=== PATIENT | female | born 1945 | race Caucasian/White ===

== ENCOUNTER 2017-12-09 06:25 | Inpatient (IN) ==
[2017-12-02 13:39] LABS: Appearance,Urine HAZY; Bilirubin,Urine NEG (NEG); Color,Urine YELLOW; Glucose,Urine (UA) NEGATIVE (NEG); Leukocyte Esterase,Urine NEG /uL (NEG); Protein,Urine NEG (NEG); Specific Gravity,Urine 1.028 (1.000-1.035); Urine Blood NEG mg/dL (<0.03)
[2017-12-02 13:44] LABS: Basophils # (Auto) 0 K/mcL (0.0-0.3); Basophils % (Auto) 0.8 % (0.0-2.0); Eosinophils # (Auto) 0.3 K/mcL (0.0-0.7); Eosinophils % (Auto) 5.4 % (0.0-7.0); Granulocytes % (Auto) 56.1 % (38.0-78.0); Lymphocytes # (Auto) 1.7 K/mcL (1.5-4.8); Lymphocytes % (Auto) 28.8 % (15.5-49.0); Mean Cell Volume 90.5 fL (80.0-100.0); Mean Corpuscular HGB Conc 32.9 g/dL (31.0-36.0); Mean Corpuscular Hemoglobin 29.8 pg (26.0-34.0); Monocytes # (Auto) 0.5 K/mcL (0.1-0.9); Monocytes % (Auto) 8.9 % (1.0-12.0); Platelet Count 354 K/mcL (140-440); RBC 4.73 M/mcL (4.00-5.20); Red Cell Distribution Width 13.3 % (11.5-14.5)
[2017-12-02 14:07] LABS: Blood Urea Nitrogen 14 mg/dl (8-23)
[2017-12-09] MEDS ORDERED: 0.9 % SODIUM CHLORIDE 9 ML, KETOROLAC 30 MG, ROPIVACAINE HCL/PF 49.5 ML, EPINEPHrine 0.... IJ SCH (07:00)
[2017-12-09] MEDS ORDERED: ACETAMINOPHEN 500 MG TABLET PO SCH (07:00)
[2017-12-09] MEDS ORDERED: PREGABALIN 75 MG CAPSULE PO SCH (07:00)
[2017-12-09] MEDS ORDERED: oxyCODONE 10 MG TAB.ER.12H PO SCH (07:00)
[2017-12-09] MEDS ORDERED: CELECOXIB 200 MG CAPSULE PO SCH (07:00)
[2017-12-09] MEDS ORDERED: ceFAZolin 1 GM VIAL IV SCH (07:00)
[2017-12-09] MEDS ORDERED: ROPIVACAINE HCL/PF 20 ML VIAL IJ ONE (09:10)
[2017-12-09] MEDS ORDERED: KETAMINE 100 MG/ML ML IV ONE (09:10)
[2017-12-09] MEDS ORDERED: PHENYLEPHRINE 10 MG/ML VIAL IV ONE (09:10)
[2017-12-09] MEDS ORDERED: GLYCOPYRROLATE 0.2 MG/ML VIAL IV ONE (09:10)
[2017-12-09] MEDS ORDERED: TRANEXAMIC ACID 1,000 MG/10 ML VIAL IV ONE ×2 (09:10→10:26)
[2017-12-09] MEDS ORDERED: LIDOCAINE HCL/PF 100 MG/5 ML SYRINGE IV ONE (09:10)
[2017-12-09] MEDS ORDERED: ONDANSETRON 4 MG/2 ML VIAL IV ONE (09:10)
[2017-12-09] MEDS ORDERED: MIDAZOLAM 2 MG/2 ML VIAL IV ONE (09:10)
[2017-12-09] MEDS ORDERED: PROPOFOL 200 MG/20 ML VIAL IV ONE (09:10)
[2017-12-09] MEDS ORDERED: GENTAMICIN SULFATE 800 MG/20 ML VIAL IR ONE (09:46)
[2017-12-09] MEDS ORDERED: TEMAZEPAM 15 MG CAPSULE PO PRN (10:26)
[2017-12-09] MEDS ORDERED: BISACODYL 10 MG SUPP.RECT PR PRN (10:26)
[2017-12-09] MEDS ORDERED: HYDROmorphone 2 MG/ML VIAL IV PRN (10:26)
[2017-12-09] MEDS ORDERED: MAGNESIUM HYDROXIDE 30 ML ORAL.SUSP PO PRN (10:26)
[2017-12-09] MEDS ORDERED: FLEETS ADULT ENEMA PR PRN (10:26)
[2017-12-09] MEDS ORDERED: ACETAMINOPHEN 325 MG TABLET PO PRN (10:26)
[2017-12-09] MEDS ORDERED: BENZOCAINE/MENTHOL 1 LOZENGE PO PRN (10:26)
[2017-12-09] MEDS ORDERED: ONDANSETRON 4 MG/2 ML VIAL IV PRN ×2 (10:26→10:35)
[2017-12-09] MEDS ORDERED: POLYETHYLENE GLYCOL 3350 17 GM PACKET PO PRN (10:26)
--- NOTE | 2017-12-09 10:26 | Brief Operative Note ---
Date of procedure: 12/09/17 Pre-op diagnosis: right knee djd severe Post-op diagnosis: same Procedure: right tka with robot Grafts/Implants: Yes Anesthesia: GETA Complications: none Surgeon: Ronny Abbott Alarm Mechanic: Kingston Alvarez Estimated blood loss (cc): 20 Tourniquet Time (Minutes): 40 Specimens Removed/Pathology: none sent Condition: stable
[2017-12-09] MEDS ORDERED: MEPERIDINE 25 MG/ML SYRINGE IV PRN (10:35)
[2017-12-09] MEDS ORDERED: METHOCARBAMOL 1,000 MG/10 ML VIAL IV PRN (10:35)
[2017-12-09] MEDS ORDERED: IPRATROPIUM/ALBUTEROL 3 ML AMPUL.NEB NEB PRN (10:35)
[2017-12-09] MEDS ORDERED: PROMETHAZINE 25 MG/ML VIAL IV PRN (10:35)
[2017-12-09] MEDS ORDERED: fentaNYL 100 MCG/2 ML VIAL IV PRN (10:35)
[2017-12-09] MEDS ORDERED: LACTATED RINGERS 1,000 ML IV SCH (10:45)
--- NOTE | 2017-12-09 11:38 | Operative Note ---
DATE OF OPERATION: 12/09/2017 PREOPERATIVE DIAGNOSIS: Severe arthritis of the right knee. POSTOPERATIVE DIAGNOSIS: Severe arthritis of the right knee. PROCEDURE: Right total knee arthroplasty using the [employer] robot. SURGEON: Ronny Abbott MD OIL AND GAS PRINCIPAL: Kingston Alavrez PA-C. ANESTHESIA: General LMA anesthesia. TOURNIQUET TIME: 40 minutes. IMPLANTS: Cemented femoral with a cruciate retained design with resurfacing of the patella, and 11 mm poly, a 33 mm patellar button. DESCRIPTION OF PROCEDURE: The patient was brought to the operating room and put to sleep with general LMA anesthesia. A midline incision made. We inspected the knee through a mid vastus approach showing severe arthritis of all three compartments. With this found we then proceeded with the preplanned total knee arthroplasty. Two pins above and below the knee were placed with an array and we registered the center of hip rotation medial and lateral malleolus, 30 points on the femur, 30 points on the tibia, intra-articular pins. We then balanced the knee at 90 degrees and 15 degrees. We adjusted the implants for this ligamentous laxity and alignment and then we proceeded with the robot. The robot was brought in and cut the cuts perfectly. These bony fragments were removed on the tibia and the femur. We preserved the posterior cruciate ligament, removed the remnants of the meniscus and any spurs posteriorly were removed. Once done, we then trialed the baseplate and rotation was set with the robot of the tibial baseplate. I then trialed the 9 and then an 11 poly. The 11 was the preplanned poly and seemed to be the most appropriate, gaining full extension to 0; varus valgus was 1 degree varus. We then resurfaced the patella measuring 22.5 to 23 mm total thickness. This was then cut to 14 mm and cemented into place a 33 mm patellar button. We cemented in and placed the tibial baseplate and the femoral component after thorough irrigation and using the CarboJet which cleaned the bone and dried the bone. Good impregnation of the cement in every area. Excess cement was removed. The 11 mm poly was placed. We irrigated, kept the knee at 45 degrees until all was dry and the cement was hard. We took the knee through range of motion. Patella tracked perfectly and we looked for more debris. We then closed the mid vastus approach with #1 Stratafix. Once this was done, we then irrigated thoroughly and closed the skin with a #1 Stratafix, two sutures were closed on the medial capsule and one under the subcutaneous and then an adhesive closure. Sterile bandage was applied. The pins had been removed, both from intra-articular and on the femur. These portals were washed out and closed with 4-0 nylon. Sterile bandage was applied. The patient tolerated this well without complications. RBH:annie Job ID: [id number] Doc ID: [id number] Ronny Abbott MD
[2017-12-09] MEDS: 0.45 % SODIUM CHLORIDE 1,000 ML IV SCH ×2 (11:41→21:30)
[2017-12-09] MEDS: HYDROcodone/APAP 10/325MG TABLET PO PRN ×4 (12:10→20:41)
[2017-12-09] MEDS: KETOROLAC 15 MG/ML VIAL IV SCH ×3 (12:10→23:44)
--- NOTE | 2017-12-09 12:34 | XRay Report ---
CLINICAL INFORMATION: ITS.REASON: Post-Op Total Knee COMPARISON: Preoperative x-ray 10/09/2017 FINDINGS: Total knee prostheses is anatomically aligned. No osseous abnormality. Periarticular gas and soft tissue swelling seen as expected IMPRESSION: Negative Interpreted and Authenticated by: Erasmo Palomares 12/09/17
[2017-12-09] MEDS: 0.9 % SODIUM CHLORIDE 10 ML SYRINGE IV SCH ×2 (14:11→21:31)
[2017-12-09] MEDS: ceFAZolin 1 GM VIAL IV SCH ×2 (14:43→21:30)
[2017-12-09] MEDS: OMEPRAZOLE 20 MG CAPSULE PO SCH (16:34)
[2017-12-09] MEDS: ASPIRIN 325 MG ENTERIC COATED TABLET PO SCH (20:19)
[2017-12-09] MEDS: SENNOSIDES 1 TABLET PO SCH (20:20)
[2017-12-09] MEDS: buPROPion 150 MG TAB.XL.24H PO SCH (20:21)
[2017-12-09] MEDS: GABAPENTIN 300 MG CAPSULE PO SCH (20:21)
[2017-12-09] MEDS: SIMVASTATIN 40 MG TABLET PO SCH (20:21)
[2017-12-09] MEDS: DOCUSATE SODIUM 100 MG CAPSULE PO SCH (20:42)
[2017-12-09] MEDS ORDERED: LOVASTATIN 80 MG PO SCH (21:00)
[2017-12-10] MEDS: HYDROcodone/APAP 10/325MG TABLET PO PRN ×6 (00:43→22:27)
[2017-12-10] MEDS: KETOROLAC 15 MG/ML VIAL IV SCH ×4 (05:38→23:19)
[2017-12-10] MEDS: 0.9 % SODIUM CHLORIDE 10 ML SYRINGE IV SCH ×3 (05:39→20:14)
[2017-12-10] MEDS: 0.45 % SODIUM CHLORIDE 1,000 ML IV SCH ×2 (06:53→17:00)
[2017-12-10] MEDS: LEVOTHYROXINE SODIUM 112 MCG TABLET PO SCH (06:54)
[2017-12-10] MEDS: OMEPRAZOLE 20 MG CAPSULE PO SCH ×2 (06:54→16:48)
--- NOTE | 2017-12-10 07:43 | Orthopedic Progress Note ---
Subjective Patient information: Note initiated : 12/10/17 at 7:42 am Service Date, if different from initiated Date: [] Patient: Gregoria James 72 y/o F admitted on 12/09/17 for Right Total Knee Arthroplasty Carlos. Chief Complaint: [Pt is stable this morning on post operative day 1 without any significant concerns or complaints. Patients vital signs have remained stable. Patients dressing is dry and is grossly intact from a neurovascular and motor standpoint. Patients 10 point ROS is otherwise negative. ] Objective Vital signs: Vital Signs Temp Pulse Resp BP BP Pulse Ox 12/10/17 07:12 98.2 F 104 H 16 114/73 90 12/10/17 07:00 92 12/10/17 04:00 97.7 F 104 H 12 111/71 92 12/10/17 03:00 91 12/10/17 00:00 98.7 F 95 H 12 113/68 91 12/09/17 23:00 91 12/09/17 20:00 98.0 F 86 12 111/71 93 12/09/17 19:00 92 12/09/17 15:00 95 12/09/17 14:46 96.9 F L 71 12 120/70 95 12/09/17 13:27 133/90 97 12/09/17 12:58 122/73 98 12/09/17 12:27 137/82 98 12/09/17 12:12 128/76 97 12/09/17 11:58 119/73 97 12/09/17 11:42 122/73 96 12/09/17 11:27 119/67 93 12/09/17 11:20 97.1 F 88 11 L 118/69 94 12/09/17 11:10 88 14 122/69 97 12/09/17 11:05 86 13 126/85 100 12/09/17 11:00 90 15 128/66 98 12/09/17 10:55 94 H 13 126/68 100 12/09/17 10:50 84 13 120/61 100 12/09/17 10:46 97.4 F 83 13 146/75 97 Intake and Output 12/09/17 12/10/17 12/10/17 21:59 05:59 13:59 Intake Total 2202 / 2202 1122 / 1122 Output Total 1351 / 1351 900 / 900 Balance 851 / 851 222 / 222 Intake: IV 982 / 982 822 / 822 Sodium Chloride 0.45% 1,000 ml 982 / 982 822 / 822 @ 100 mls/hr IV .Q10H JOSEPH Rx#: [id number] Oral 1220 / 1220 300 / 300 Output: Void Amount 1300 / 1300 900 / 900 # of times incontinent of urine 1 Emesis 50 / 50 Other: Meal Dinner Percent of Meal Consumed 75% Feeding Ability Independent Urine Color Bright Yellow # Voids 1 1 1 Weight 165 lb 8 oz Intake & Output: Intake & Output 12/09/17 12/10/17 12/10/17 21:59 05:59 13:59 Intake Total 2202 / 2202 1122 / 1122 Output Total 1351 / 1351 900 / 900 Balance 851 / 851 222 / 222 Weight 165 lb 8 oz Intake: IV 982 / 982 822 / 822 Sodium Chloride 0.45% 1,000 ml 982 / 982 822 / 822 @ 100 mls/hr IV .Q10H JOSEPH Rx#: [id number] Oral 1220 / 1220 300 / 300 Output: Void Amount 1300 / 1300 900 / 900 # of times incontinent of urine Emesis 50 / 50 Other: Meal Dinner Percent of Meal Consumed 75% Feeding Ability Independent Urine Color Bright Yellow # Voids 1 1 1 Incision: Yes healing Incision clean and dry: Yes Dressing: Yes clean, Yes dry Weight bearing status: full Neurological exam IM: Yes motor sensory intact, Yes neurovascular intact Extremities exam IM: Yes Foot pink and warm, Yes neurovascular intact - Labs CBC & BMP: 12/10/17 05:10 12/02/17 11:56 Labs: Orthopedic Labs 12/02/17 11:56 PT 13.2 INR 1.0 APTT 29 12/10/17 12/02/17 05:10 11:56 Hgb 14.1 Hct 34.3 L 42.9 Assessment and Plan (1) Hx of total knee arthroplasty The patient has been educated regarding dressing care, Physical Therapy recommendations, home exercises, restrictions, and follow up appointments. The patient has had all necessary DME prescribed. The patient has remained relatively stable during their hospital course. Status: Acute
--- NOTE | 2017-12-10 07:45 | Discharge Summary ---
Ortho Discharge - TKA - Patient Instructions Diet: Regular Diet Activity: activity as tolerated, weight bearing as tolerated Total Knee Protocol: For Total Knee: Start ROM PALMA with stationary bike or rocking chair. Work on gaining full extension of knee. Posterior dislocation precautions provided. Hip abductor strengthening and gait training instructions provided. Apply Cryocuff as instructed. Dressing Care: May shower in 2 days - Problem Maintenance (1) Hx of total knee arthroplasty Status: Acute - Follow Up Plan Follow Up Appointments: Kingston Alvarez PA-C [Physician Doll Maker] - 12/24/17 10:40 am Disposition: Home, Self-Care Prognosis: Good Rehab Potential: Good I certify that the patient requires SNF services: No Overall status at discharge: patient is progressing back to baseline - Orders For Discharge Prescriptions: Aspirin [Ecotrin] 325 mg PO BID #60 tab.ec Docusate Sodium [Colace] 100 mg PO BID #60 capsule HYDROcodone/APAP 10/325MG [[place] 10-325Mg] 1 - 2 tab PO Q4HP PRN #75 tablet PRN Reason: Pain Level 3-6
[2017-12-10] MEDS: buPROPion 150 MG TAB.XL.24H PO SCH ×2 (09:02→20:14)
[2017-12-10] MEDS: ASPIRIN 325 MG ENTERIC COATED TABLET PO SCH ×2 (09:02→20:13)
[2017-12-10] MEDS: amLODIPine 5 MG TABLET PO SCH (09:02)
[2017-12-10] MEDS: CALCIUM W/VIT D3 500 MG TABLET PO SCH ×2 (09:02→20:13)
[2017-12-10] MEDS: POTASSIUM CHLORIDE 10 MEQ TABLET PO SCH (09:03)
[2017-12-10] MEDS: FUROSEMIDE 40 MG TABLET PO SCH (09:03)
[2017-12-10] MEDS: DOCUSATE SODIUM 100 MG CAPSULE PO SCH ×2 (09:03→20:13)
[2017-12-10] MEDS: SENNOSIDES 1 TABLET PO SCH (20:13)
[2017-12-10] MEDS: GABAPENTIN 300 MG CAPSULE PO SCH (20:13)
[2017-12-10] MEDS: SIMVASTATIN 40 MG TABLET PO SCH (20:14)
[2017-12-11] MEDS: HYDROcodone/APAP 10/325MG TABLET PO PRN ×5 (02:37→20:34)
[2017-12-11] MEDS: 0.9 % SODIUM CHLORIDE 10 ML SYRINGE IV SCH ×3 (05:22→20:32)
[2017-12-11] MEDS: KETOROLAC 15 MG/ML VIAL IV SCH (05:23)
[2017-12-11] MEDS: LEVOTHYROXINE SODIUM 112 MCG TABLET PO SCH (06:41)
[2017-12-11] MEDS: OMEPRAZOLE 20 MG CAPSULE PO SCH ×2 (06:41→18:35)
[2017-12-11] MEDS: ASPIRIN 325 MG ENTERIC COATED TABLET PO SCH ×2 (09:24→20:31)
[2017-12-11] MEDS: CALCIUM W/VIT D3 500 MG TABLET PO SCH ×2 (09:24→20:31)
[2017-12-11] MEDS: amLODIPine 5 MG TABLET PO SCH (09:25)
[2017-12-11] MEDS: buPROPion 150 MG TAB.XL.24H PO SCH ×2 (09:25→20:32)
[2017-12-11] MEDS: POTASSIUM CHLORIDE 10 MEQ TABLET PO SCH (09:30)
[2017-12-11] MEDS: DOCUSATE SODIUM 100 MG CAPSULE PO SCH ×2 (09:30→20:31)
[2017-12-11] MEDS: FUROSEMIDE 40 MG TABLET PO SCH (09:31)
[2017-12-11] MEDS: SENNOSIDES 1 TABLET PO SCH (20:31)
[2017-12-11] MEDS: GABAPENTIN 300 MG CAPSULE PO SCH (20:31)
[2017-12-11] MEDS: SIMVASTATIN 40 MG TABLET PO SCH (20:32)
[2017-12-12] MEDS: HYDROcodone/APAP 10/325MG TABLET PO PRN ×2 (02:25→07:11)
[2017-12-12] MEDS: 0.9 % SODIUM CHLORIDE 10 ML SYRINGE IV SCH (06:05)
[2017-12-12] MEDS: OMEPRAZOLE 20 MG CAPSULE PO SCH (07:10)
[2017-12-12] MEDS: LEVOTHYROXINE SODIUM 112 MCG TABLET PO SCH (07:11)
[2017-12-12] MEDS: amLODIPine 5 MG TABLET PO SCH (08:54)
[2017-12-12] MEDS: FUROSEMIDE 40 MG TABLET PO SCH (08:54)
[2017-12-12] MEDS: DOCUSATE SODIUM 100 MG CAPSULE PO SCH (08:54)
[2017-12-12] MEDS: buPROPion 150 MG TAB.XL.24H PO SCH (08:54)
[2017-12-12] MEDS: ASPIRIN 325 MG ENTERIC COATED TABLET PO SCH (08:54)
[2017-12-12] MEDS: POTASSIUM CHLORIDE 10 MEQ TABLET PO SCH (08:54)
[2017-12-12] MEDS: CALCIUM W/VIT D3 500 MG TABLET PO SCH (08:54)
[2017-12-16] MEDS ORDERED: ERGOCALCIFEROL (VITAMIN D2) 50,000 UNIT CAPSULE PO SCH (09:00)
--- NOTE | 2017-12-19 11:13 | Discharge Summary ---
DATE OF ADMISSION: 12/09/2017 DATE OF DISCHARGE: 12/12/2017 ADMITTING DIAGNOSIS: Severe degenerative osteoarthritis, right knee. DISCHARGE DIAGNOSIS: Severe degenerative osteoarthritis, right knee with right robotic total knee arthroplasty with Conrad implant. DISCHARGE CONDITION: Stable. CONSULTATIONS: None. PROCEDURE PERFORMED: Right total knee arthroplasty was completed on the date of admission. The procedure went without complications and there was minimal blood loss. Following the procedure the patient was taken to recovery room in stable condition. When deemed stable, was taken to the hospital floor for further observation and recovery. HISTORY OF PRESENT ILLNESS: This pleasant patient has exhausted conservative care measures in the office that has included trials with anti-inflammatories, pain medications, injections and physical therapy. The patient has discussed non-operative and operative options with Dr. Abbott at length. Due to the exhausting conservative measures the patient desired to proceed forth with operative care. HOSPITAL COURSE: The patient remained stable throughout the hospital course and exhibited normal neurovascular examinations throughout the stay. The patient worked with physical therapy per standard protocols. The patient had no incidents during the hospital course. The patient also had a stable physical exam upon discharge. DISCHARGE PHYSICAL EXAMINATION: VITAL SIGNS: Stable as above. GENERAL: Patient is awake, alert and oriented x3. HEENT: Head was normocephalic. NECK: Supple, no adenopathy or thyromegaly. CHEST: CTA, no wheezing, rhonchi or rales. HEART: NSR, no gallops, rubs or murmurs. MUSCULOSKELETAL: Lower extremities revealed grossly intact motor exam. NEUROLOGIC: Deep tendon response and light touch, motor, neurosensory exam was stable. SKIN: The incision was intact and the dressing had been changed to the Acticoat dressing. There were no abnormal skin markings, lesions, erythema, rashes or other skin breakdown. DISCHARGE INSTRUCTIONS/MEDICATIONS: The patient received our standard written discharge instruction sheet. These instructions included information regarding weightbearing status, activity level, diet, wound care, physical therapy instructions, bathing restrictions, shower recommendations, follow-up guidelines, driving restrictions and monitoring the wound for signs of infection that could include but not necessarily to fevers above 101.5, sweats, chills, redness, increased pain or drainage. Should any of these occur the patient was educated to contact our office at once. The patient was sent to custodial facility. MEDICATIONS: The patient was restarted on normal primary care medications. Patient was also prescribed [place] 10/325 mg with instructions for 1 to 2 tabs by mouth every 4 to 6 hours as needed for pain, quantity 75 with 2 refills. The patient will be placed on 325 mg aspirin, 1 a day for 30 days post surgery. [facility] will monitor the patient's PT/INR. FOLLOWUP: Patient will follow up at [facility] 2 weeks from surgery for a postop wound check and staple removal. They will be able to certain follow up sooner with any problems or concerns. BAP:hussain Job ID: [id number] Doc ID: [id number] Kingston Alvarez PA-C
== END 2017-12-12 11:00 | disposition home or self-care (01) | DRG 470 ==
LOC: MEDSUR 06:25
PROVIDERS: ADMIT Orthopaedic Surgery; ATTEND Orthopaedic Surgery